=== PATIENT | female | born 1975 | race Caucasian/White ===

== ENCOUNTER 2018-08-10 22:20 | Observation (INO) | payer OTHER ==
[2018-08-10] MEDS ORDERED: solu-MEDROL 125 MG IV ONE (22:28)
[2018-08-10] MEDS ORDERED: ROCEPHIN 1 Gm-D5w 50 ml Bag** 1 G/50 ML IVPB IV STA (22:28)
[2018-08-10] MEDS ORDERED: Zithromax 500 MG/ 250 ML NaCl Premix 500 MG/250 ML IVPB IV STA (22:28)
[2018-08-10] MEDS ORDERED: DUONEB 0.5-3 MG/3 ml Neb IH ONE ×2 (22:28→22:48)
[2018-08-10 22:49] LABS: BASOPHIL % 0.2 % (0.0-0.4); Basophil (Absolute #) 0.01 (0-0.4); Eosinophil % 4.4 % (0.00-5.0); Eosinophil (Absolute #) 0.27 (0-0.5); Granulocyte Absolute (ANC) 2.61 (1.4-6.9); Granulocytes % 42.7 % (36.0-66.0); Hematocrit 41.3 % (35-47); Hemoglobin 13.3 gm/dl (12.0-16.0); Lymphocytes % 40.9 % (24.0-44.0); Mean Cell Volume 88.1 fl (78-100); Mean Corpuscular Hemoglobin 28.4 pg (26-32); Mean Corpuscular Hgb Concent. 32.2 g/dl (32-36); Mean Platelet Volume 10.8 fl (6-9.5); Monocyte (Absolute #) 0.72 (0.0-1.3); Monocytes % 11.8 % (0.0-12.0); Platelet Count 239 K/mm3 (150-450); Red Blood Count 4.69 M/mm3 (4.1-5.4); Red Cell Distribution Width 14.3 % (11.5-14.0); White Blood Count 6.1 K/mm3 (4.0-10.5)
[2018-08-10] MEDS ORDERED: solu-MEDROL 125 MG ONE (22:49)
[2018-08-10] MEDS ORDERED: Zithromax 500 MG/ 250 ML NaCl Premix 500 MG/250 ML IVPB IV ONE (22:50)
[2018-08-10 23:08] LABS: ALKALINE PHOSPHATASE 94 U/L (38-126); ANION GAP 15.5 MEQ/L (5-15); BLOOD UREA NITROGEN 10 mg/dL (7-17); CHLORIDE 106 mmol/L (98-107); Calcium 9.4 mg/dL (8.4-10.2); Carbon Dioxide 24 mmol/L (22-30); Glucose 108 mg/dL (74-106); NT PRO BNP 38.9 pg/mL (0-450); Potassium 4.7 mmol/L (3.5-5.1); SGOT/AST 64 U/L (14-36); SGPT/ALT 79 U/L (0-35); SODIUM 141 mmol/L (137-145); Total Protein 7.4 g/dL (6.3-8.2)
[2018-08-10 23:53] LABS: INFLUENZA A POSITIVE (NEGATIVE); INFLUENZA B NEGATIVE (NEGATIVE); RESPIRATORY SYNCTIAL VIRUS NEGATIVE (Negative)
[2018-08-11] MEDS ORDERED: DUONEB 0.5-3 MG/3 ml Neb IH ONE ×2 (00:40→00:47)
[2018-08-11] MEDS ORDERED: Tamiflu 75MG Capsule PO ONE ×2 (00:41→00:59)
--- NOTE | 2018-08-11 00:57 | ERPHSYRPT ---
- History of Present Illness Source: patient Exam Limitations: no limitations Patient Subjective Stated Complaint: SOB Triage Nursing Assessment: Patient brought back to ED via w/c and transferred to bed with assist of 2. Patient A+O X 3. Patient complains of SOB. Patient states she was sitting in a chair and started having SOB. Patient called her neighbor to bring her to ED. Patient's lungs noted to have rhonchi and wheezes throughout. O2 95% on room air. No edema present. Physician History: Pt is a 43 y/o female that presented to the ED secondary to SOB. Pt states, getting worse over last few days, and she did not smoke secondary to the dyspnea. Pt denies F/C/S. No chest pain or palpitations. No N/V/D or abdominal pain. Timing/Duration: day(s) Cough Quality/Degree: severe, dry cough Modifying Factors: Improves With: coughing, deep breath, exertion Associated Symptoms: shortness of breath Allergies/Adverse Reactions: codeine Adverse Reaction (Verified 08/10/18 22:42) Hx Influenza Vaccination/Date Given: No Hx Pneumococcal Vaccination/Date Given: No Immunizations Up to Date: Yes - Review of Systems Constitutional: Malaise Eyes: No Symptoms Ears, Nose, & Throat: No Symptoms Respiratory: Cough, Dyspnea, Dyspnea on Exertion (ARDON), Wheezing Cardiac: No Chest Pain, No Edema, No Syncope Abdominal/Gastrointestinal: No Abdominal Pain, No Nausea, No Vomiting, No Diarrhea Genitourinary Symptoms: No Dysuria Musculoskeletal: Back Pain, No Neck Pain Neurological: Parasthesia (H/o neuropathy) Psychological: Anxiety, Depression, Mood Changes - Past Medical History Neurological History: Migraines ENT History: No Pertinent History Cardiac History: Hypertension Respiratory History: Bronchitis Endocrine Medical History: Diabetes Type II, Hypothyroidism Musculoskeletal History: No Pertinent History GI Medical History: No Pertinent History History: No Pertinent History Psycho-Social History: Anxiety, Bipolar, Depression Female Reproductive Disorders: No Pertinent History - Past Surgical History Past Surgical History: Yes Neuro Surgical History: No Pertinent History Cardiac: No Pertinent History Respiratory: No Pertinent History Gastrointestinal: Cholecystectomy Genitourinary: No Pertinent History Musculoskeletal: Orthopedic Surgery Female Surgical History: No Pertinent History Other Surgical History: Total right knee replacement - Social History Smoking Status: Current every day smoker How long have you smoked: 34 years Exposure to second hand smoke: No Drug Use: none Patient Lives Alone: No - Female History Hx Last Menstrual Period: 07/17/18 Hx Now: No - Nursing Vital Signs Nursing Vital Signs: Initial Vital Signs Temperature 98.6 F 08/10/18 22:26 Pulse Rate 89 08/10/18 22:26 Respiratory Rate 30 H 08/10/18 22:26 Blood Pressure 149/120 08/10/18 22:26 O2 Sat by Pulse Oximetry 94 L 08/10/18 22:26 Pain Scale Pain Intensity 8 - Physical Exam General Appearance: moderate distress Eye Exam: PERRL/EOMI, eyes nml inspection Ears, Nose, Throat Exam: normal ENT inspection, TMs normal, pharynx normal, moist mucous membranes Neck Exam: normal inspection, non-tender, supple, full range of motion Respiratory Exam: respiratory distress, diminished breath sounds, accessory muscle use, wheezing Cardiovascular Exam: regular rate/rhythm, normal heart sounds Gastrointestinal/Abdomen Exam: soft, No tenderness Back Exam: normal inspection, No CVA tenderness, No vertebral tenderness Extremity Exam: normal inspection (Pt is not ambulating secondaray to neuropathy ), normal range of motion SpO2: 98 - Course Nursing assessment & vital signs reviewed: Yes EKG Interpreted by Me: RATE (92bpm), NORMAL ST-T, Other (low voltage criteria) Ordered Tests: Active Orders 24 hr Category Date Time Status [employer] STAT Care 08/10/18 22:30 Active IV Insertion STAT Care 08/10/18 22:28 Active CHEST 1 VIEW (PORTABLE) Stat Exams 08/10/18 22:29 Taken CBC W DIFF Stat Lab 08/10/18 22:36 Completed CMP Stat Lab 08/10/18 22:36 Completed D-DIMER QUANTITATION Stat Lab 08/10/18 22:36 Completed NT PRO BNP Stat Lab 08/10/18 22:36 Completed TROPONIN Q3H Lab 08/10/18 22:36 Completed TROPONIN Q3H Lab 08/11/18 01:30 Ordered TROPONIN Q3H Lab 08/11/18 04:30 Ordered TROPONIN Q3H Lab 08/11/18 07:30 Ordered TROPONIN Q3H Lab 08/11/18 10:30 Ordered Respiratory Nebulizer STAT RT 08/10/18 22:30 Completed Respiratory Nebulizer STAT RT 08/11/18 00:40 Completed Respiratory Therapy Assessment DAILY RT 08/10/18 22:51 Completed Respiratory Therapy Assessment DAILY RT 08/11/18 00:47 Completed Medication Summary Discontinued Medications Generic Name Dose Route Start Last Admin Trade Name Norma NAVAS Reason Stop Dose Admin Albuterol/Ipratropium 3 ml 08/10/18 22:28 08/10/18 22:50 Duoneb 0.5-3 Mg/3 Ml Neb IH 08/10/18 22:29 3 ml STAT ONE Administration Albuterol/Ipratropium Confirm 08/10/18 22:48 Duoneb 0.5-3 Mg/3 Ml Neb Administered 08/10/18 22:49 Dose 3 ml IH .STK-MED ONE Albuterol/Ipratropium 3 ml 08/11/18 00:40 08/11/18 00:48 Duoneb 0.5-3 Mg/3 Ml Neb IH 08/11/18 00:41 3 ml STAT ONE Administration Albuterol/Ipratropium Confirm 08/11/18 00:47 Duoneb 0.5-3 Mg/3 Ml Neb Administered 08/11/18 00:48 Dose 3 ml IH .STK-MED ONE Ceftriaxone Sodium/Dextrose 1 g in 50 mls @ 100 mls/hr 08/10/18 22:28 23:57 Rocephin 1 Gm-D5w 50 Ml Bag IV 08/10/18 22:57 Infused STAT STA Infusion Azithromycin 500 mg in 250 mls @ 250 mls/hr 08/10/18 22:28 08/10/18 23:25 Zithromax 500 Mg/ 250 Ml Nacl Premix IV 08/10/18 23:27 250 ml/hr STAT STA 250 mls/hr Administration Azithromycin Confirm 08/10/18 22:50 Zithromax 500 Mg/ 250 Ml Nacl Premix Administered 08/10/18 22:51 Dose 500 mg in 250 mls @ ud IV .STK-MED ONE Methylprednisolone Sodium Succinate 125 mg 08/10/18 22:28 08/10/18 22:51 Solu-Medrol 125 Mg IV 08/10/18 22:29 125 mg STAT ONE Administration Methylprednisolone Sodium Succinate Confirm 08/10/18 22:49 Solu-Medrol 125 Mg Administered 08/10/18 22:50 Dose 125 mg .ROUTE .STK-MED ONE Oseltamivir Phosphate 75 mg 08/11/18 00:41 Tamiflu 75mg Capsule PO 08/11/18 00:42 STAT ONE Lab/Rad Data: Laboratory Result Diagrams 08/10/18 22:36 08/10/18 22:36 Laboratory Results 08/10/18 08/10/18 08/10/18 Range/Units 22:38 22:36 22:36 WBC (4.0-10.5) K/mm3 RBC (4.1-5.4) M/mm3 Hgb (12.0-16.0) gm/dl Hct (35-47) % MCV (78-100) fl MCH (26-32) pg MCHC (32-36) g/dl RDW (11.5-14.0) % Plt Count (150-450) K/mm3 MPV (6-9.5) fl Gran % (36.0-66.0) % Eos # (Auto) (0-0.5) Absolute Lymphs (auto) (1.0-4.6) Absolute Monos (auto) (0.0-1.3) Lymphocytes % (24.0-44.0) % Monocytes % (0.0-12.0) % Eosinophils % (0.00-5.0) % Basophils % (0.0-0.4) % Absolute Granulocytes (1.4-6.9) Basophils # (0-0.4) D-Dimer 496 (215-500) ng/mL Sodium (137-145) mmol/L Potassium (3.5-5.1) mmol/L Chloride (98-107) mmol/L Carbon Dioxide (22-30) mmol/L Anion Gap (5-15) MEQ/L BUN (7-17) mg/dL Creatinine (0.52-1.04) mg/dL Estimated GFR ML/MIN Glucose (74-106) mg/dL Calcium (8.4-10.2) mg/dL Total Bilirubin (0.2-1.3) mg/dL AST (14-36) U/L ALT (0-35) U/L Alkaline Phosphatase (38-126) U/L Troponin I < 0.012 (0.000-0.034) ng/mL NT-Pro-B Natriuret Pep (0-450) pg/mL Serum Total Protein (6.3-8.2) g/dL Albumin (3.5-5.0) g/dL Influenza Type A Ag POSITIVE (NEGATIVE) Influenza Type B Ag NEGATIVE (NEGATIVE) RSV (PCR) NEGATIVE (Negative) 08/10/18 08/10/18 Range/Units 22:36 22:36 WBC 6.1 (4.0-10.5) K/mm3 RBC 4.69 (4.1-5.4) M/mm3 Hgb 13.3 (12.0-16.0) gm/dl Hct 41.3 (35-47) % MCV 88.1 (78-100) fl MCH 28.4 (26-32) pg MCHC 32.2 (32-36) g/dl RDW 14.3 H (11.5-14.0) % Plt Count 239 (150-450) K/mm3 MPV 10.8 H (6-9.5) fl Gran % 42.7 (36.0-66.0) % Eos # (Auto) 0.27 (0-0.5) Absolute Lymphs (auto) 2.50 (1.0-4.6) Absolute Monos (auto) 0.72 (0.0-1.3) Lymphocytes % 40.9 (24.0-44.0) % Monocytes % 11.8 (0.0-12.0) % Eosinophils % 4.4 (0.00-5.0) % Basophils % 0.2 (0.0-0.4) % Absolute Granulocytes 2.61 (1.4-6.9) Basophils # 0.01 (0-0.4) D-Dimer (215-500) ng/mL Sodium 141 (137-145) mmol/L Potassium 4.7 (3.5-5.1) mmol/L Chloride 106 (98-107) mmol/L Carbon Dioxide 24 (22-30) mmol/L Anion Gap 15.5 H (5-15) MEQ/L BUN 10 (7-17) mg/dL Creatinine 0.60 (0.52-1.04) mg/dL Estimated GFR > 60.0 ML/MIN Glucose 108 H (74-106) mg/dL Calcium 9.4 (8.4-10.2) mg/dL Total Bilirubin 0.70 (0.2-1.3) mg/dL AST 64 H (14-36) U/L ALT 79 H (0-35) U/L Alkaline Phosphatase 94 (38-126) U/L Troponin I (0.000-0.034) ng/mL NT-Pro-B Natriuret Pep 38.9 (0-450) pg/mL Serum Total Protein 7.4 (6.3-8.2) g/dL Albumin 4.0 (3.5-5.0) g/dL Influenza Type A Ag (NEGATIVE) Influenza Type B Ag (NEGATIVE) RSV (PCR) (Negative) - Progress Progress: improved Air Movement: fair Progress Note: 08/11/18 00:58 Pt presented with severe SOB. She got duo nebsx2, Solu Medrol 125mg IV, Azithromycin and Rocephin IV, and Tamiflu. Pt is still extremly wheezy and SOB. Dr Greer accepted pt for admit for Dr Najera. - Departure Time of Disposition: 01:00 Departure Disposition: In-patient Admission Clinical Impression: Acute respiratory distress Condition: Stable Critical Care Time: Yes Critical Care Time(excluding separately billable procedures): 30-74 minutes Referrals: KIARRA NAJERA [Primary Care Provider] -
[2018-08-11] MEDS ORDERED: NovoLOG Insulin SQ PRN (01:01)
[2018-08-11] MEDS: DUONEB 0.5-3 MG/3 ml Neb IH SCH ×3 (03:39→10:39)
[2018-08-11] MEDS ORDERED: TYLENOL 325 MG PO PRN (04:34)
[2018-08-11] MEDS ORDERED: Tussionex Pennkinetic Susp PO PRN ×2 (04:35→07:37)
[2018-08-11 04:49] LABS: Hematocrit 40.4 % (35-47); Mean Cell Volume 87.8 fl (78-100); Mean Corpuscular Hemoglobin 28.3 pg (26-32); Mean Corpuscular Hgb Concent. 32.2 g/dl (32-36); Mean Platelet Volume 10.6 fl (6-9.5); Platelet Count 225 K/mm3 (150-450); Red Cell Distribution Width 14.1 % (11.5-14.0); White Blood Count 4.5 K/mm3 (4.0-10.5)
[2018-08-11 05:32] LABS: ALBUMIN 3.9 g/dL (3.5-5.0); ALKALINE PHOSPHATASE 108 U/L (38-126); ANION GAP 14.6 MEQ/L (5-15); BLOOD UREA NITROGEN 11 mg/dL (7-17); CHLORIDE 105 mmol/L (98-107); Calcium 9.6 mg/dL (8.4-10.2); Carbon Dioxide 24 mmol/L (22-30); Creatinine 1 0.62 mg/dL (0.52-1.04); Glucose 181 mg/dL (74-106); SGOT/AST 49 U/L (14-36); SGPT/ALT 75 U/L (0-35); SODIUM 139 mmol/L (137-145)
[2018-08-11] MEDS ORDERED: Sodium Chloride 0.9% 10 ML FLUSH Syringe IV SCH (06:00)
[2018-08-11] MEDS: solu-MEDROL 125 MG IV SCH ×2 (06:18→12:15)
--- NOTE | 2018-08-11 07:42 | XRAY ---
Indication: Short of breath. Comparison: None Portable chest demonstrates normal heart, lungs, and bony thorax.
--- NOTE | 2018-08-11 09:23 | PCM.SSS ---
History of Present Illness - Chief Complaint Chief Complaint: Influenza A, respiratory distress History of Present Illness: is a 43 year old female who presented to the ER last night complaining of cough and shortness of breath, she is very nervous and a poor historian. She has been afebrile since admission and not requiring any supplemental oxygen, found to have influenza A on arrival, receiving fluids and tamiflu. - Review of Systems Constitutional: Chills Respiratory: Cough, Short Of Breath, Wheezing Cardiac: No Chest Pain, No Edema, No Syncope Abdominal/Gastrointestinal: No Abdominal Pain, No Nausea, No Vomiting, No Diarrhea Skin: No Rash Psychological: Anxiety Immunological/Allergic: No Symptoms All Other Systems: Reviewed and Negative Medications & Allergies Home Medications: Home Medication List Albuterol Sulfate [Albuterol Sulfate Hfa] 2 puffs IH Q4-6HPRN PRN #1 [id number].[id number].[id number] 08/11/18 [Rx] Aspirin EC 81 mg [Ecotrin 81 mg] 81 mg PO DAILY 08/11/18 [History Confirmed 08/11/18] Desvenlafaxine Succinate [Pristiq] 50 mg PO DAILY 08/11/18 [History Confirmed ] Diphenhydramine HCl 25 mg [Benadryl 25 mg Capsule] 25 mg PO BID 08/11/18 [ History Confirmed 08/11/18] Doxycycline Hyclate 100 mg [Vibramycin 100 MG] 100 mg PO DAILY 08/11/18 [ History Confirmed 08/11/18] Linaclotide [Linzess] 72 mcg PO DAILY 08/11/18 [History Confirmed 08/11/18] Lisinopril 10 mg [Zestril 10 MG] 10 mg PO DAILY 08/11/18 [History Confirmed 08/11/18] Melatonin/Pyridoxine HCl (B6) [Melatonin 3 mg Tablet] 3 mg PO QHS 08/11/18 [ History Confirmed 08/11/18] Metformin HCl 500 mg [Glucophage 500 MG] 500 mg PO DAILY 08/11/18 [ History Confirmed 08/11/18] Mirabegron [Myrbetriq] 25 mg PO DAILY 08/11/18 [History Confirmed 08/11/18] Ondansetron HCl 4 mg PO QDP PRN 08/11/18 [History Confirmed 08/11/18] Oseltamivir 75 mg [Tamiflu 75MG Capsule] 75 mg PO BID #8 cap 08/11/18 [Rx] Pregabalin 50 mg [Lyrica 50MG] 50 mg pe PO DAILY 08/11/18 [History Confirmed 08/11/18] Tizanidine HCl 4 mg [Zanaflex 4 MG] 4 mg PO TID 08/11/18 [History Confirmed 08/11/18] buPROPion HCl [Wellbutrin Sr] 200 mg PO BID 08/11/18 [History Confirmed 08/11/18 ] Allergies/Adverse Reactions: Allergies Allergy/AdvReac Type Severity Reaction Status Date / Time codeine AdvReac Verified 08/10/18 22:42 - Past Medical History Neurological History: Migraines ENT History: No Pertinent History Cardiac History: Hypertension Respiratory History: Bronchitis Endocrine Medical History: Diabetes Type II, Hypothyroidism Musculoskelatal History: No Pertinent History, Degenerative Disk Disease, Fibromyalgia GI Medical History: No Pertinent History History: No Pertinent History Pyscho-Social History: Anxiety, Bipolar, Depression, Panic Disorder Reproductive Disorders: No Pertinent History - Female History Hx Last Menstrual Period: 07/17/18 Are you now?: No - Past Surgical History Past Surgical History: Yes Neuro Surgical History: No Pertinent History Cardiac History: No Pertinent History Respiratory Surgery: No Pertinent History GI Surgical History: Cholecystectomy Genitourinary Surgical Hx: No Pertinent History Musculskeletal Surgical Hx: Orthopedic Surgery Female Surgical History: No Pertinent History Other Surgical History: Total right knee replacement - Social History Smoking Status: Current every day smoker How long have you smoked: 34 years Exposure to second hand smoke: No Alcohol: None Drug Use: none - Physical Exam Vital Signs: Vital Signs - 24 hr Temp Pulse Resp BP BP Pulse Ox 08/11/18 07:24 97.9 F 82 18 114/77 94 L 08/11/18 07:08 92 H 20 92 L 08/11/18 03:40 89 18 96 08/11/18 02:19 98.8 F 88 18 126/76 95 08/11/18 01:00 98 08/11/18 00:48 79 27 H 98 08/10/18 23:50 85 20 132/84 95 03/02/19 23:11 89 28 H 145/91 95 08/10/18 22:55 87 21 95 08/10/18 22:26 98.6 F 89 30 H 149/120 94 L General Appearance: mild distress (patient shaking, anxious), obese Neurologic Exam: alert, oriented x 3 Eye Exam: PERRL/EOMI, eyes nml inspection Respiratory Exam: normal breath sounds, lungs clear, No accessory muscle use Cardiovascular Exam: regular rate/rhythm, normal heart sounds, normal peripheral pulses Gastrointestinal/Abdomen Exam: soft, normal bowel sounds, No tenderness, No mass Skin Exam: normal color, warm, dry, No rash Results - Labs Lab/Micro Results: Lab Results-Last 24 Hours 08/10/18 08/10/18 08/10/18 Range/Units 22:36 22:36 22:36 WBC 6.1 (4.0-10.5) K/mm3 RBC 4.69 (4.1-5.4) M/mm3 Hgb 13.3 (12.0-16.0) gm/dl Hct 41.3 (35-47) % MCV 88.1 (78-100) fl MCH 28.4 (26-32) pg MCHC 32.2 (32-36) g/dl RDW 14.3 H (11.5-14.0) % Plt Count 239 (150-450) K/mm3 MPV 10.8 H (6-9.5) fl Gran % 42.7 (36.0-66.0) % Eos # (Auto) 0.27 (0-0.5) Absolute Lymphs (auto) 2.50 (1.0-4.6) Absolute Monos (auto) 0.72 (0.0-1.3) Lymphocytes % 40.9 (24.0-44.0) % Monocytes % 11.8 (0.0-12.0) % Eosinophils % 4.4 (0.00-5.0) % Basophils % 0.2 (0.0-0.4) % Absolute Granulocytes 2.61 (1.4-6.9) Basophils # 0.01 (0-0.4) D-Dimer 496 (215-500) ng/mL Sodium 141 (137-145) mmol/L Potassium 4.7 (3.5-5.1) mmol/L Chloride 106 (98-107) mmol/L Carbon Dioxide 24 (22-30) mmol/L Anion Gap 15.5 H (5-15) MEQ/L BUN 10 (7-17) mg/dL Creatinine 0.60 (0.52-1.04) mg/dL Estimated GFR > 60.0 ML/MIN Glucose 108 H (74-106) mg/dL Calcium 9.4 (8.4-10.2) mg/dL Total Bilirubin 0.70 (0.2-1.3) mg/dL AST 64 H (14-36) U/L ALT 79 H (0-35) U/L Alkaline Phosphatase 94 (38-126) U/L Troponin I (0.000-0.034) ng/mL NT-Pro-B Natriuret Pep 38.9 (0-450) pg/mL Serum Total Protein 7.4 (6.3-8.2) g/dL Albumin 4.0 (3.5-5.0) g/dL Influenza Type A Ag (NEGATIVE) Influenza Type B Ag (NEGATIVE) RSV (PCR) (Negative) 08/10/18 08/10/18 08/11/18 Range/Units 22:36 22:38 01:40 WBC (4.0-10.5) K/mm3 RBC (4.1-5.4) M/mm3 Hgb (12.0-16.0) gm/dl Hct (35-47) % MCV (78-100) fl MCH (26-32) pg MCHC (32-36) g/dl RDW (11.5-14.0) % Plt Count (150-450) K/mm3 MPV (6-9.5) fl Gran % (36.0-66.0) % Eos # (Auto) (0-0.5) Absolute Lymphs (auto) (1.0-4.6) Absolute Monos (auto) (0.0-1.3) Lymphocytes % (24.0-44.0) % Monocytes % (0.0-12.0) % Eosinophils % (0.00-5.0) % Basophils % (0.0-0.4) % Absolute Granulocytes (1.4-6.9) Basophils # (0-0.4) D-Dimer (215-500) ng/mL Sodium (137-145) mmol/L Potassium (3.5-5.1) mmol/L Chloride (98-107) mmol/L Carbon Dioxide (22-30) mmol/L Anion Gap (5-15) MEQ/L BUN (7-17) mg/dL Creatinine (0.52-1.04) mg/dL Estimated GFR ML/MIN Glucose (74-106) mg/dL Calcium (8.4-10.2) mg/dL Total Bilirubin (0.2-1.3) mg/dL AST (14-36) U/L ALT (0-35) U/L Alkaline Phosphatase (38-126) U/L Troponin I < 0.012 < 0.012 (0.000-0.034) ng/mL NT-Pro-B Natriuret Pep (0-450) pg/mL Serum Total Protein (6.3-8.2) g/dL Albumin (3.5-5.0) g/dL Influenza Type A Ag POSITIVE (NEGATIVE) Influenza Type B Ag NEGATIVE (NEGATIVE) RSV (PCR) NEGATIVE (Negative) 08/11/18 08/11/18 08/11/18 Range/Units 04:45 04:45 04:45 WBC 4.5 (4.0-10.5) K/mm3 RBC 4.60 (4.1-5.4) M/mm3 Hgb 13.0 (12.0-16.0) gm/dl Hct 40.4 (35-47) % MCV 87.8 (78-100) fl MCH 28.3 (26-32) pg MCHC 32.2 (32-36) g/dl RDW 14.1 H (11.5-14.0) % Plt Count 225 (150-450) K/mm3 MPV 10.6 H (6-9.5) fl Gran % (36.0-66.0) % Eos # (Auto) (0-0.5) Absolute Lymphs (auto) (1.0-4.6) Absolute Monos (auto) (0.0-1.3) Lymphocytes % (24.0-44.0) % Monocytes % (0.0-12.0) % Eosinophils % (0.00-5.0) % Basophils % (0.0-0.4) % Absolute Granulocytes (1.4-6.9) Basophils # (0-0.4) D-Dimer (215-500) ng/mL Sodium 139 (137-145) mmol/L Potassium 4.0 (3.5-5.1) mmol/L Chloride 105 (98-107) mmol/L Carbon Dioxide 24 (22-30) mmol/L Anion Gap 14.6 (5-15) MEQ/L BUN 11 (7-17) mg/dL Creatinine 0.62 (0.52-1.04) mg/dL Estimated GFR > 60.0 ML/MIN Glucose 181 H (74-106) mg/dL Calcium 9.6 (8.4-10.2) mg/dL Total Bilirubin 0.30 (0.2-1.3) mg/dL AST 49 H (14-36) U/L ALT 75 H (0-35) U/L Alkaline Phosphatase 108 (38-126) U/L Troponin I < 0.012 (0.000-0.034) ng/mL NT-Pro-B Natriuret Pep (0-450) pg/mL Serum Total Protein 7.0 (6.3-8.2) g/dL Albumin 3.9 (3.5-5.0) g/dL Influenza Type A Ag (NEGATIVE) Influenza Type B Ag (NEGATIVE) RSV (PCR) (Negative) - Radiology Impressions Radiology Exams & Impressions: Radiology Procedures Category Date Time Status CHEST 1 VIEW (PORTABLE) Stat Exams 08/10/18 22:29 Completed - Other Procedures and Tests Respiratory Therapy 08/11/18 01:01 Oxygen Nasal Cannula 2 lpm 08/11/18 03:39 Respiratory Therapy Assessment DAILY 08/11/18 07:00 Peak Expiratory Flow Rate ONCE Assessment/Plan (1) Influenza A Current Visit: Yes Status: Acute Assessment & Plan: home on tamiflu, no wheezing on exam today. wbc normal, chest xray clear and again no oxygen required and afebrile since admission Code(s): J10.1 - FLU DUE TO OTH IDENT INFLUENZA VIRUS W OTH RESP MANIFEST Hospital Summary - Vitals & Intake/Output Vital Signs: Vital Signs Temperature 97.9 F 08/11/18 07:24 Pulse Rate 82 08/11/18 07:24 Respiratory Rate 18 08/11/18 07:24 Blood Pressure 114/77 08/11/18 07:24 O2 Sat by Pulse Oximetry 94 L 08/11/18 07:24 Intake & Output: Intake & Output 08/08/18 08/09/18 08/10/18 08/11/18 11:59 11:59 11:59 11:59 Intake Total 680 Output Total 1000 Balance -320 Weight 130 kg - Lab Result Diagrams: 08/11/18 04:45 08/11/18 04:45 Lab Results-Last 24 Hrs: Lab Results-Last 24 Hours 08/10/18 08/10/18 08/10/18 Range/Units 22:36 22:36 22:36 WBC 6.1 (4.0-10.5) K/mm3 RBC 4.69 (4.1-5.4) M/mm3 Hgb 13.3 (12.0-16.0) gm/dl Hct 41.3 (35-47) % MCV 88.1 (78-100) fl MCH 28.4 (26-32) pg MCHC 32.2 (32-36) g/dl RDW 14.3 H (11.5-14.0) % Plt Count 239 (150-450) K/mm3 MPV 10.8 H (6-9.5) fl Gran % 42.7 (36.0-66.0) % Eos # (Auto) 0.27 (0-0.5) Absolute Lymphs (auto) 2.50 (1.0-4.6) Absolute Monos (auto) 0.72 (0.0-1.3) Lymphocytes % 40.9 (24.0-44.0) % Monocytes % 11.8 (0.0-12.0) % Eosinophils % 4.4 (0.00-5.0) % Basophils % 0.2 (0.0-0.4) % Absolute Granulocytes 2.61 (1.4-6.9) Basophils # 0.01 (0-0.4) D-Dimer 496 (215-500) ng/mL Sodium 141 (137-145) mmol/L Potassium 4.7 (3.5-5.1) mmol/L Chloride 106 (98-107) mmol/L Carbon Dioxide 24 (22-30) mmol/L Anion Gap 15.5 H (5-15) MEQ/L BUN 10 (7-17) mg/dL Creatinine 0.60 (0.52-1.04) mg/dL Estimated GFR > 60.0 ML/MIN Glucose 108 H (74-106) mg/dL Calcium 9.4 (8.4-10.2) mg/dL Total Bilirubin 0.70 (0.2-1.3) mg/dL AST 64 H (14-36) U/L ALT 79 H (0-35) U/L Alkaline Phosphatase 94 (38-126) U/L Troponin I (0.000-0.034) ng/mL NT-Pro-B Natriuret Pep 38.9 (0-450) pg/mL Serum Total Protein 7.4 (6.3-8.2) g/dL Albumin 4.0 (3.5-5.0) g/dL Influenza Type A Ag (NEGATIVE) Influenza Type B Ag (NEGATIVE) RSV (PCR) (Negative) 08/10/18 08/10/18 08/11/18 Range/Units 22:36 22:38 01:40 WBC (4.0-10.5) K/mm3 RBC (4.1-5.4) M/mm3 Hgb (12.0-16.0) gm/dl Hct (35-47) % MCV (78-100) fl MCH (26-32) pg MCHC (32-36) g/dl RDW (11.5-14.0) % Plt Count (150-450) K/mm3 MPV (6-9.5) fl Gran % (36.0-66.0) % Eos # (Auto) (0-0.5) Absolute Lymphs (auto) (1.0-4.6) Absolute Monos (auto) (0.0-1.3) Lymphocytes % (24.0-44.0) % Monocytes % (0.0-12.0) % Eosinophils % (0.00-5.0) % Basophils % (0.0-0.4) % Absolute Granulocytes (1.4-6.9) Basophils # (0-0.4) D-Dimer (215-500) ng/mL Sodium (137-145) mmol/L Potassium (3.5-5.1) mmol/L Chloride (98-107) mmol/L Carbon Dioxide (22-30) mmol/L Anion Gap (5-15) MEQ/L BUN (7-17) mg/dL Creatinine (0.52-1.04) mg/dL Estimated GFR ML/MIN Glucose (74-106) mg/dL Calcium (8.4-10.2) mg/dL Total Bilirubin (0.2-1.3) mg/dL AST (14-36) U/L ALT (0-35) U/L Alkaline Phosphatase (38-126) U/L Troponin I < 0.012 < 0.012 (0.000-0.034) ng/mL NT-Pro-B Natriuret Pep (0-450) pg/mL Serum Total Protein (6.3-8.2) g/dL Albumin (3.5-5.0) g/dL Influenza Type A Ag POSITIVE (NEGATIVE) Influenza Type B Ag NEGATIVE (NEGATIVE) RSV (PCR) NEGATIVE (Negative) 08/11/18 08/11/18 08/11/18 Range/Units 04:45 04:45 04:45 WBC 4.5 (4.0-10.5) K/mm3 RBC 4.60 (4.1-5.4) M/mm3 Hgb 13.0 (12.0-16.0) gm/dl Hct 40.4 (35-47) % MCV 87.8 (78-100) fl MCH 28.3 (26-32) pg MCHC 32.2 (32-36) g/dl RDW 14.1 H (11.5-14.0) % Plt Count 225 (150-450) K/mm3 MPV 10.6 H (6-9.5) fl Gran % (36.0-66.0) % Eos # (Auto) (0-0.5) Absolute Lymphs (auto) (1.0-4.6) Absolute Monos (auto) (0.0-1.3) Lymphocytes % (24.0-44.0) % Monocytes % (0.0-12.0) % Eosinophils % (0.00-5.0) % Basophils % (0.0-0.4) % Absolute Granulocytes (1.4-6.9) Basophils # (0-0.4) D-Dimer (215-500) ng/mL Sodium 139 (137-145) mmol/L Potassium 4.0 (3.5-5.1) mmol/L Chloride 105 (98-107) mmol/L Carbon Dioxide 24 (22-30) mmol/L Anion Gap 14.6 (5-15) MEQ/L BUN 11 (7-17) mg/dL Creatinine 0.62 (0.52-1.04) mg/dL Estimated GFR > 60.0 ML/MIN Glucose 181 H (74-106) mg/dL Calcium 9.6 (8.4-10.2) mg/dL Total Bilirubin 0.30 (0.2-1.3) mg/dL AST 49 H (14-36) U/L ALT 75 H (0-35) U/L Alkaline Phosphatase 108 (38-126) U/L Troponin I < 0.012 (0.000-0.034) ng/mL NT-Pro-B Natriuret Pep (0-450) pg/mL Serum Total Protein 7.0 (6.3-8.2) g/dL Albumin 3.9 (3.5-5.0) g/dL Influenza Type A Ag (NEGATIVE) Influenza Type B Ag (NEGATIVE) RSV (PCR) (Negative) - Radiology Exams Ordered Rad Exams-Entire Visit: Radiology Procedures Category Date Time Status CHEST 1 VIEW (PORTABLE) Stat Exams 08/10/18 22:29 Completed - Procedures and Test Procedures and Tests throughout Hospitalization: Therapy Orders & Screens 08/10/18 22:30 Respiratory Nebulizer STAT Comment: Diagnosis: Shortness of Breath 08/10/18 22:51 Respiratory Therapy Assessment DAILY Comment: Diagnosis: Shortness of Breath 08/11/18 00:40 Respiratory Nebulizer STAT Comment: Diagnosis: Shortness of Breath 08/11/18 00:47 Respiratory Therapy Assessment DAILY Comment: Diagnosis: Shortness of Breath 08/11/18 01:01 Oxygen Nasal Cannula 2 lpm Comment: Diagnosis: Shortness of Breath 08/11/18 03:39 Respiratory Therapy Assessment DAILY Comment: Diagnosis: Influenza A, respiratory distress 08/11/18 07:00 Peak Expiratory Flow Rate ONCE Comment: Reason For Exam: Diagnosis: Influenza A, respiratory distress - Discharge Disposition: Home, Self-Care Condition: Stable Prescriptions: New Albuterol Sulfate [Albuterol Sulfate Hfa] 2 puffs IH Q4-6HPRN PRN #1 [email or web address] PRN Reason: Shortness Of Breath Oseltamivir 75 mg [Tamiflu 75MG Capsule] 75 mg PO BID #8 cap Continue Desvenlafaxine Succinate [Pristiq] 50 mg PO DAILY Mirabegron [Myrbetriq] 25 mg PO DAILY Linaclotide [Linzess] 72 mcg PO DAILY buPROPion HCl [Wellbutrin Sr] 200 mg PO BID Tizanidine HCl 4 mg [Zanaflex 4 MG] 4 mg PO TID Aspirin EC 81 mg [Ecotrin 81 mg] 81 mg PO DAILY Metformin HCl 500 mg [Glucophage 500 MG] 500 mg PO DAILY Doxycycline Hyclate 100 mg [Vibramycin 100 MG] 100 mg PO DAILY Ondansetron HCl 4 mg PO QDP PRN PRN Reason: Nausea Diphenhydramine HCl 25 mg [Benadryl 25 mg Capsule] 25 mg PO BID Melatonin/Pyridoxine HCl (B6) [Melatonin 3 mg Tablet] 3 mg PO QHS Pregabalin 50 mg [Lyrica 50MG] 50 mg pe PO DAILY Lisinopril 10 mg [Zestril 10 MG] 10 mg PO DAILY Follow up with: KIARRA ORELLANA [Primary Care Provider] - 1 Week
[2018-08-11] MEDS ORDERED: ENOXAPARIN SODIUM SQ SCH (10:00)
[2018-08-11] MEDS ORDERED: Tamiflu 75MG Capsule PO SCH (10:00)
[2018-08-11 12:08] VITALS: BP 136/72; PULSE 97; O2SAT 94
[2018-08-11] MEDS ORDERED: ROCEPHIN 1 Gm-D5w 50 ml Bag** 1 G/50 ML IVPB IV SCH (22:00)
[2018-08-11] MEDS ORDERED: Zithromax 500 MG/ 250 ML NaCl Premix 500 MG/250 ML IVPB IV SCH (22:00)
== END 2018-08-11 13:10 ==
LOC: ED 22:20 → INTOOBSV 08-11 01:35 → ICU 08-11 01:35
PROVIDERS: ADMIT General Practice; ATTEND General Practice
DX: J09.X2 Influenza due to identified novel influenza A virus with other respiratory manifestations (principal); R06.02 Shortness of breath; I10 Essential (primary) hypertension; E11.9 Type 2 diabetes mellitus without complications; E03.9 Hypothyroidism, unspecified; Z79.899 Other long term (current) drug therapy; Z79.84 Long term (current) use of oral hypoglycemic drugs
CPT/HCPCS: 36000; 36415; 71045; 80053; 82962; 83880; 84484; 85025; 85027; 85379; 87631; 93041; 93268; 94150; 94640; 96365; 96367; 96374; 99285; J0456; J0696; J1650; J2930; A9270-GY; G0378

== ENCOUNTER 2018-10-16 07:39 | Day surgery (SDC) | payer OTHER ==
[2018-10-16] MEDS ORDERED: XYLOCAINE 1% HCL 20 ML MDV IJ ONE (07:40)
[2018-10-16] MEDS ORDERED: Depo-Medrol 40 MG/ML IM ONE (07:40)
[2018-10-16] MEDS ORDERED: DIPRIVAN 200 MG/20 ML IV ONE (07:40)
[2018-10-16] MEDS ORDERED: Ketamine HCl 50 MG/ML IV ONE (07:40)
[2018-10-16] MEDS ORDERED: Marcaine 0.5% SDV 10 ML IJ ONE (07:40)
[2018-10-16] MEDS ORDERED: Xylocaine 1% Vial 30 ML PF IJ ONE (07:40)
--- NOTE | 2018-10-16 10:04 | XRAY ---
Indication: Left trochanter injection. Intraoperative fluoroscopy was provided for 8 seconds. Single digital spot image submitted for interpretation demonstrates needle tip just lateral to the left greater trochanter. Small amount of contrast injected for needle tip placement. Correlate with intraoperative findings/report.
--- NOTE | 2018-10-16 10:07 | XRAY ---
8 seconds fluoroscopy time in surgery for left greater trochanteric injection.
--- NOTE | 2018-10-16 10:15 | XRAY ---
Indication: Right trochanter injection. Intraoperative fluoroscopy was provided for 5 seconds. Single digital spot image submitted for interpretation demonstrates needle tip just lateral to the right greater trochanter. Small amount of contrast injected for needle tip placement. Correlate with intraoperative findings/report.
--- NOTE | 2018-10-16 10:17 | XRAY ---
5 seconds fluoroscopy time in surgery for right greater trochanteric injection.
[2018-10-16] MEDS ORDERED: Lactated Ringers 1,000 ML IV ONE (13:46)
== END 2018-10-16 09:42 | disposition home or self-care (01) ==
LOC: SDC-PAIN 07:39
PROVIDERS: ATTEND Psychiatry & Neurology Pain Medicine
DX: M70.62 Trochanteric bursitis, left hip (principal); M70.61 Trochanteric bursitis, right hip; E11.40 Type 2 diabetes mellitus with diabetic neuropathy, unspecified; I10 Essential (primary) hypertension; E03.9 Hypothyroidism, unspecified; J44.9 Chronic obstructive pulmonary disease, unspecified; M06.9 Rheumatoid arthritis, unspecified; F32.9 Major depressive disorder, single episode, unspecified; M79.7 Fibromyalgia; M35.00 Sjogren syndrome, unspecified; Z79.899 Other long term (current) drug therapy
CPT/HCPCS: 20610; 73501; 77002; 82962; J1030; J2001; J2704; Q9966

== ENCOUNTER 2018-12-04 07:21 | Day surgery (SDC) | payer OTHER ==
[2018-12-04] MEDS ORDERED: Depo-Medrol 40 MG/ML IM ONE (07:22)
[2018-12-04] MEDS ORDERED: Marcaine 0.5% SDV 10 ML IJ ONE (07:22)
[2018-12-04] MEDS ORDERED: Ketamine HCl 50 MG/ML ONE (08:41)
[2018-12-04] MEDS ORDERED: DIPRIVAN 200 MG/20 ML IV ONE (09:11)
--- NOTE | 2018-12-04 10:41 | XRAY ---
15 seconds fluoroscopy time in surgery for bilateral SI joint injections.
--- NOTE | 2018-12-04 10:49 | XRAY ---
Indication: Bilateral SI joint injection. Intraoperative fluoroscopy was provided for 15 seconds. 4 digital spot images submitted for interpretation demonstrates posterior needle tips projecting over the inferior left and right SI joints. Correlate with intraoperative findings/report.
[2018-12-04] MEDS ORDERED: Lactated Ringers 1,000 ML IV ONE (13:26)
== END 2018-12-04 09:41 | disposition home or self-care (01) ==
LOC: SDC-PAIN 07:21
PROVIDERS: ATTEND Psychiatry & Neurology Pain Medicine
DX: M46.1 Sacroiliitis, not elsewhere classified (principal); E11.9 Type 2 diabetes mellitus without complications; I10 Essential (primary) hypertension; E03.9 Hypothyroidism, unspecified; F41.8 Other specified anxiety disorders; J44.9 Chronic obstructive pulmonary disease, unspecified; M06.9 Rheumatoid arthritis, unspecified
CPT/HCPCS: 72202; 77002; 82962; G0260; 27096; J1030; J2704

== ENCOUNTER 2022-07-19 09:22 | Day surgery (SDC) | payer MEDICARE ==
[2022-07-19] MEDS ORDERED: Depo-Medrol 40 MG/ML IM ONE (09:23)
[2022-07-19] MEDS ORDERED: BUPIVACAINE 0.5% VIAL IJ ONE (09:23)
[2022-07-19] MEDS ORDERED: DIPRIVAN 200 MG/20 ML IV ONE (10:41)
[2022-07-19] MEDS ORDERED: Lactated Ringers 1,000 ML IV ONE (13:16)
--- NOTE | 2022-07-19 14:35 | XRAY ---
Indication: Bilateral SI joint injection. Intraoperative fluoroscopy provided for 19 seconds. 4 digital spot image submitted for interpretation demonstrates posterior needle tip projecting over the left and right SI joint. Correlate with intraoperative findings/report.
--- NOTE | 2022-07-19 14:49 | XRAY ---
19 seconds fluoroscopy time in surgery for bilateral SI joint injections.
== END 2022-07-19 11:10 | disposition home or self-care (01) ==
LOC: SDC-PAIN 09:22
PROVIDERS: ATTEND Psychiatry & Neurology Pain Medicine
DX: M46.1 Sacroiliitis, not elsewhere classified (principal); E11.9 Type 2 diabetes mellitus without complications; Z79.899 Other long term (current) drug therapy
CPT/HCPCS: 01992; 27096; 72202; 77002; 82947; G0260; J1030; J2704

== ENCOUNTER 2023-10-10 08:31 | Day surgery (SDC) | payer MEDICARE ==
[2023-10-10] MEDS ORDERED: BUPIVACAINE 0.5% VIAL IJ ONE (08:32)
[2023-10-10] MEDS ORDERED: Depo-Medrol 40 MG/ML IM ONE (08:32)
[2023-10-10] MEDS ORDERED: DIPRIVAN 200 MG/20 ML IV ONE (11:07)
[2023-10-10] MEDS ORDERED: Lactated Ringers 1,000 ML IV ONE (11:29)
--- NOTE | 2023-10-10 12:31 | XRAY ---
Indication: Bilateral SI joint injection. Intraoperative fluoroscopy provided for 27 seconds. 4 digital spot images submitted for interpretation demonstrates posterior needle tip projecting over left and right SI joint. Small amount of contrast injected for both needle tip placement. Correlate with intraoperative findings/report.
--- NOTE | 2023-10-11 14:12 | XRAY ---
27 seconds of fluoroscopy was used in surgery for a bilateral sacroiliac joint injection.
== END 2023-10-10 11:37 | disposition home or self-care (01) ==
LOC: SDC-PAIN 08:31
PROVIDERS: ATTEND Psychiatry & Neurology Pain Medicine
DX: M46.1 Sacroiliitis, not elsewhere classified (principal); E11.9 Type 2 diabetes mellitus without complications
CPT/HCPCS: 01992; 27096; 72202; 77002; 82947; G0260; J1010; J2704; Q9966

== ENCOUNTER 2023-12-05 08:44 | Day surgery (SDC) | payer MEDICARE ==
[2023-12-05] MEDS ORDERED: Depo-Medrol 40 MG/ML IM ONE (08:45)
[2023-12-05] MEDS ORDERED: BUPIVACAINE 0.5% VIAL IJ ONE (08:45)
[2023-12-05] MEDS ORDERED: Lactated Ringers 1,000 ML IV ONE (10:06)
[2023-12-05] MEDS ORDERED: DIPRIVAN 200 MG/20 ML IV ONE ×2 (10:48→10:59)
--- NOTE | 2023-12-05 13:20 | XRAY ---
Indication: Bilateral greater trochanter bursa injection. Intraoperative fluoroscopy provided for 18 seconds. 2 digital spot images submitted for interpretation demonstrates needle tips projecting lateral to left and right greater trochanters. Small amount of contrast injected for needle tip placement. Correlate with intraoperative findings/report.
--- NOTE | 2023-12-05 13:24 | XRAY ---
18 seconds of fluoroscopy was used in surgery for a bilateral greater trochanteric bursa injection.
== END 2023-12-05 11:20 | disposition home or self-care (01) ==
LOC: SDC-PAIN 08:44
PROVIDERS: ATTEND Psychiatry & Neurology Pain Medicine
DX: M70.62 Trochanteric bursitis, left hip (principal); M70.61 Trochanteric bursitis, right hip; E11.9 Type 2 diabetes mellitus without complications
CPT/HCPCS: 20610; 73521; 77002; 82947; J1010; J2704; Q9966

== ENCOUNTER 2024-01-30 08:28 | Day surgery (SDC) | payer MEDICARE ==
[2024-01-30] MEDS ORDERED: Depo-Medrol 40 MG/ML IM ONE (08:29)
[2024-01-30] MEDS ORDERED: LIDOCAINE HCL 1% 50 MG/5 ML VL PF IJ ONE (08:29)
[2024-01-30] MEDS ORDERED: Sodium Chloride 0.9(Preservative Free) 10 ML IJ ONE (08:29)
[2024-01-30] MEDS ORDERED: Lactated Ringers 1,000 ML IV ONE (10:39)
[2024-01-30] MEDS ORDERED: DIPRIVAN 200 MG/20 ML IV ONE (10:42)
--- NOTE | 2024-01-30 11:52 | XRAY ---
Indication: Lumbar PETER. Intraoperative fluoroscopy provided for 22 seconds. 3 digital spot images submitted for interpretation demonstrates posterior needle tip projecting just posterior to lumbosacral junction interspace. Small amount of contrast injected for needle tip placement. Correlate with intraoperative findings/report.
--- NOTE | 2024-01-30 12:06 | XRAY ---
22 seconds of fluoroscopy was used in surgery for a lumbar PETER.
== END 2024-01-30 11:05 ==
LOC: SDC-PAIN 08:28
PROVIDERS: ATTEND Psychiatry & Neurology Pain Medicine
DX: M54.16 Radiculopathy, lumbar region (principal); E11.9 Type 2 diabetes mellitus without complications
CPT/HCPCS: 62323; 72100; 77003; 82947; J2001; J2704; Q9966

== ENCOUNTER 2024-08-21 08:39 | Day surgery (SDC) | payer MEDICARE ==
[2024-08-21] MEDS ORDERED: dexAMETHasone sodium phosphate IJ ONE (08:40)
[2024-08-21] MEDS ORDERED: Sodium Chloride 0.9(Preservative Free) 10 ML IJ ONE (08:40)
[2024-08-21] MEDS ORDERED: propofoL IV ONE (10:52)
--- NOTE | 2024-08-21 13:20 | XRAY ---
Indication: Right L4-S1 transforaminal PETER. Intraoperative fluoroscopy provided for 36 seconds. 4 digital spot image submitted for interpretation demonstrates posterior needle tips projecting over expected right L4 and L5 nerve roots. Small amount of contrast injected for needle tip placement. Correlate with intraoperative findings/report.
--- NOTE | 2024-08-21 14:52 | XRAY ---
36 seconds of fluoroscopy was used in surgery for a right L4-S1 transforaminal PETER.
== END 2024-08-21 11:20 | disposition home or self-care (01) ==
LOC: SDC-PAIN 08:39
PROVIDERS: ATTEND Psychiatry & Neurology Pain Medicine
DX: M54.16 Radiculopathy, lumbar region (principal); E11.9 Type 2 diabetes mellitus without complications
CPT/HCPCS: 64483; 64484; 72100; 77003; 82947; J1100; J2704; Q9966